=== PATIENT | female | born 1945 | race Caucasian/White ===

== ENCOUNTER 2018-10-18 05:56 | Inpatient (IN) ==
[2018-10-07 15:50] LABS: Basophils # (Auto) 0 K/mcL (0.0-0.3); Basophils % (Auto) 0.4 % (0.0-2.0); Eosinophils # (Auto) 0.3 K/mcL (0.0-0.7); Eosinophils % (Auto) 3.6 % (0.0-7.0); Granulocytes % (Auto) 59.7 % (38.0-78.0); Lymphocytes # (Auto) 2.7 K/mcL (1.5-4.8); Mean Cell Volume 104.8 fL (80.0-100.0); Mean Corpuscular HGB Conc 33.2 g/dL (31.0-36.0); Mean Corpuscular Hemoglobin 34.8 pg (26.0-34.0); Monocytes # (Auto) 0.6 K/mcL (0.1-0.9); Monocytes % (Auto) 6.3 % (1.0-12.0); Platelet Count 363 K/mcL (140-440); RBC 4.09 M/mcL (4.00-5.20); Red Cell Distribution Width 14.1 % (11.5-14.5)
[2018-10-07 16:10] LABS: Blood Urea Nitrogen 27 mg/dl (8-23)
[2018-10-18] MEDS ORDERED: ceFAZolin 1 GM VIAL IV SCH (07:00)
[2018-10-18] MEDS ORDERED: ACETAMINOPHEN 500 MG TABLET PO SCH (07:00)
[2018-10-18] MEDS ORDERED: CELECOXIB 200 MG CAPSULE PO SCH (07:00)
[2018-10-18] MEDS ORDERED: oxyCODONE 10 MG TAB.ER.12H PO SCH (07:00)
[2018-10-18] MEDS ORDERED: 0.9 % SODIUM CHLORIDE 9 ML, KETOROLAC 30 MG, ROPIVACAINE HCL/PF 49.5 ML, EPINEPHrine 0.... IJ SCH (07:00)
[2018-10-18] MEDS ORDERED: PREGABALIN 75 MG CAPSULE PO SCH (07:00)
[2018-10-18] MEDS ORDERED: GENTAMICIN SULFATE 800 MG/20 ML VIAL IR ONE (07:05)
[2018-10-18] MEDS ORDERED: ACETAMINOPHEN 325 MG TABLET PO PRN (07:25)
[2018-10-18] MEDS ORDERED: POLYETHYLENE GLYCOL 3350 17 GM PACKET PO PRN (07:25)
[2018-10-18] MEDS ORDERED: KETOROLAC 15 MG/ML VIAL IV PRN (07:25)
[2018-10-18] MEDS ORDERED: TEMAZEPAM 15 MG CAPSULE PO PRN (07:25)
[2018-10-18] MEDS ORDERED: HYDROmorphone 2 MG/ML VIAL IV PRN ×2 (07:25→10:39)
[2018-10-18] MEDS ORDERED: FLEETS ADULT ENEMA PR PRN (07:25)
[2018-10-18] MEDS ORDERED: TRANEXAMIC ACID 1,000 MG/10 ML VIAL IV ONE ×2 (07:25→09:35)
[2018-10-18] MEDS ORDERED: MAGNESIUM HYDROXIDE 30 ML ORAL.SUSP PO PRN (07:25)
[2018-10-18] MEDS ORDERED: BENZOCAINE/MENTHOL 1 LOZENGE PO PRN ×2 (07:25→10:39)
[2018-10-18] MEDS ORDERED: BISACODYL 10 MG SUPP.RECT PR PRN (07:25)
[2018-10-18] MEDS ORDERED: ONDANSETRON 4 MG/2 ML VIAL IV PRN ×2 (07:25→10:39)
--- NOTE | 2018-10-18 07:25 | Brief Operative Note ---
Date of procedure: 10/18/18 Pre-op diagnosis: right hip djd severe Post-op diagnosis: same Procedure: right aldo cemented Grafts/Implants: Yes Anesthesia: GETA Complications: none Surgeon: Partha Prescott Air Brake Mechanic: Brian Lo Estimated blood loss (cc): 100 Specimens Removed/Pathology: none sent Condition: stable Disposition: PACU
[2018-10-18] MEDS ORDERED: ALBUTEROL SULFATE 1 PUFF INHALER INH PRN (07:27)
[2018-10-18] MEDS ORDERED: FAMOTIDINE 20 MG TABLET PO PRN (07:27)
[2018-10-18] MEDS ORDERED: DEXAMETHASONE 10 MG/ML VIAL IV ONE (09:35)
[2018-10-18] MEDS ORDERED: LIDOCAINE HCL/PF 100 MG/5 ML SYRINGE IV ONE (09:35)
[2018-10-18] MEDS ORDERED: MIDAZOLAM 5 MG/5 ML VIAL IV ONE (09:35)
[2018-10-18] MEDS ORDERED: ONDANSETRON 4 MG/2 ML VIAL IV ONE (09:35)
[2018-10-18] MEDS ORDERED: PROPOFOL 200 MG/20 ML VIAL IV ONE (09:35)
[2018-10-18] MEDS ORDERED: ePHEDrine 50 MG/ML AMPUL IV ONE (09:35)
[2018-10-18] MEDS ORDERED: LACTATED RINGERS 250 ML IV PRN (10:39)
[2018-10-18] MEDS ORDERED: fentaNYL 100 MCG/2 ML VIAL IV PRN (10:39)
[2018-10-18] MEDS ORDERED: FLUMAZENIL 0.1 MG/ML ML IV PRN (10:39)
[2018-10-18] MEDS ORDERED: IPRATROPIUM/ALBUTEROL 3 ML AMPUL.NEB NEB PRN (10:39)
[2018-10-18] MEDS ORDERED: MEPERIDINE 25 MG/ML SYRINGE IV PRN (10:39)
[2018-10-18] MEDS ORDERED: PROMETHAZINE 25 MG/ML VIAL IV PRN (10:39)
[2018-10-18] MEDS ORDERED: NALOXONE HCL 0.4 MG/ML VIAL IV PRN (10:39)
[2018-10-18] MEDS ORDERED: diphenhydrAMINE 50 MG/ML VIAL IV PRN (10:39)
[2018-10-18] MEDS ORDERED: LACTATED RINGERS 1,000 ML IV SCH (10:45)
[2018-10-18] MEDS: SPIRONOLACTONE 25 MG TABLET PO SCH (11:38)
[2018-10-18] MEDS: CARVEDILOL 6.25 MG TABLET PO SCH ×2 (11:39→18:07)
--- NOTE | 2018-10-18 11:55 | XRay Report ---
CLINICAL INFORMATION: Postoperative follow-up TECHNIQUE: AP pelvis. AP and lateral right hip COMPARISON: None. FINDINGS: Status post right total hip arthroplasty. Alignment appears anatomic. There is degenerative joint disease in the left hip with axial joint space narrowing. There are left femoral head osteophytes. Pelvis is negative. No fracture. Degenerative joint disease is demonstrated within the lower lumbar spine. IMPRESSION: Previous right total hip arthroplasty Interpreted and Authenticated by: Vazquez Borrego 10/18/18
[2018-10-18] MEDS: BUDESONIDE INH SCH ×2 (13:42→20:19)
[2018-10-18] MEDS: MULTIVIT,THER IRON,CA,FA & MIN 1 TABLET PO SCH (13:42)
[2018-10-18] MEDS: FORMOTEROL FUMARATE INH SCH ×2 (13:42→20:19)
[2018-10-18] MEDS: HYDROcodone/APAP 10/325MG TABLET PO PRN ×2 (13:43→19:11)
[2018-10-18] MEDS: 0.9 % SODIUM CHLORIDE 10 ML SYRINGE IV SCH ×2 (13:43→20:20)
[2018-10-18] MEDS: LEVOTHYROXINE 100 MCG TABLET PO SCH (13:43)
[2018-10-18] MEDS: DOCUSATE SODIUM 100 MG CAPSULE PO SCH ×2 (13:43→20:18)
[2018-10-18] MEDS: 0.45 % SODIUM CHLORIDE 1,000 ML IV SCH ×2 (13:47→22:34)
[2018-10-18] MEDS: ceFAZolin 1 GM VIAL IV SCH ×2 (14:45→22:34)
[2018-10-18] MEDS: BUMETANIDE 1 MG TABLET PO SCH (18:04)
[2018-10-18] MEDS: POTASSIUM CHLORIDE 20 MEQ TABLET PO SCH (18:07)
--- NOTE | 2018-10-18 18:17 | Discharge Summary ---
Ortho Discharge - [facility] - Patient Instructions Diet: Regular Diet Activity: activity as tolerated, weight bearing as tolerated Total Hip Protocol: Follow activity instructions as provided by Physical Therapy. Dressing Care: May shower in 2 days - Follow Up Plan Follow Up Appointments: Brian Lo PA-C [Physician Intrusion Analyst] - 11/04/18 10:40 am Disposition: Home, Self-Care Prognosis: Good Rehab Potential: Good I certify that the patient requires SNF services: No Overall status at discharge: patient is progressing back to baseline - Orders For Discharge Prescriptions: Aspirin [Ecotrin] 325 mg PO BID #60 tab.ec Docusate Sodium [Colace] 100 mg PO BID #60 cap HYDROcodone/APAP 10/325MG [[place] 10-325Mg] 1 - 2 tab PO Q4HP PRN #75 tab PRN Reason: Pain Level 3-6
[2018-10-18] MEDS: NITROFURANTOIN SR 100 MG CAPSULE PO SCH (20:19)
[2018-10-18] MEDS ORDERED: TIOTROPIUM BROMIDE 18 MCG INHALANT INH SCH (21:00)
[2018-10-18] MEDS ORDERED: guaiFENesin 600 MG TAB.SR.12H PO SCH (21:00)
[2018-10-18] MEDS ORDERED: SENNOSIDES 1 TABLET PO SCH (21:00)
[2018-10-18] MEDS ORDERED: ASPIRIN 325 MG ENTERIC COATED TABLET PO SCH (21:00)
[2018-10-18] MEDS ORDERED: ALBUTEROL SULFATE 2.5 MG/3 ML NEBULIZER NEB SCH (21:00)
[2018-10-19] MEDS: HYDROcodone/APAP 10/325MG TABLET PO PRN ×3 (00:39→12:37)
[2018-10-19] MEDS: 0.45 % SODIUM CHLORIDE 1,000 ML IV SCH (04:56)
[2018-10-19] MEDS: 0.9 % SODIUM CHLORIDE 10 ML SYRINGE IV SCH (05:17)
--- NOTE | 2018-10-19 07:35 | Orthopedic Progress Note ---
Subjective Patient information: Note initiated : 10/19/18 at 7:34 am Service Date, if different from initiated Date: [] Patient: Lucila Lombardi 73 y/o F admitted on 10/18/18 for Right Total Hip Arthroplasty. Chief Complaint: [Pt is stable this morning on post operative day 1 without any significant concerns or complaints. Patients vital signs have remained stable. Patients dressing is dry and is grossly intact from a neurovascular and motor standpoint. Patients 10 point ROS is otherwise negative. ] Objective Vital signs: Vital Signs Temp Pulse Pulse Resp BP BP Pulse Ox 10/19/18 06:56 96.2 F L 65 18 113/62 95 10/19/18 05:00 93 10/19/18 04:00 97.3 F 81 18 116/62 93 10/19/18 00:00 98.7 F 73 16 111/59 93 10/18/18 23:55 93 10/18/18 21:55 85 18 10/18/18 20:11 98.2 F 76 18 122/53 93 10/18/18 14:59 139/74 94 10/18/18 13:59 122/67 97 10/18/18 13:29 116/66 95 10/18/18 13:00 96 10/18/18 12:44 124/70 94 10/18/18 12:29 119/68 94 10/18/18 12:15 120/58 95 10/18/18 11:59 115/65 94 10/18/18 11:50 97.3 F 59 L 16 117/57 96 10/18/18 11:40 56 L 15 119/54 96 10/18/18 11:25 97.1 F 62 12 111/81 97 10/18/18 11:20 55 L 15 125/60 98 10/18/18 11:15 55 L 15 118/60 98 10/18/18 11:12 97.1 F 62 12 111/81 97 Intake and Output 10/18/18 10/19/18 10/19/18 21:59 05:59 13:59 Intake Total 1225 / 1225 1813 / 1813 Output Total 750 / 750 500 / 500 Balance 475 / 475 1313 / 1313 Intake: IV 1513 / 1513 Sodium Chloride 0.45% 1,000 ml 1513 / 1513 @ 100 mls/hr IV .Q10H ABHAY Rx#: [id number] Oral 1225 / 1225 300 / 300 Output: Urine Catheter Amount 750 / 750 Straight 750 / 750 Void Amount 500 / 500 Other: Urine Appearance Straight Clear Urine Color Bright Yellow Straight Dark Yellow Urine Odor Normal Weight 218 lb Intake & Output: Intake & Output 10/18/18 10/19/18 10/19/18 21:59 05:59 13:59 Intake Total 1225 / 1225 1813 / 1813 Output Total 750 / 750 500 / 500 Balance 475 / 475 1313 / 1313 Weight 218 lb Intake: IV 1513 / 1513 Sodium Chloride 0.45% 1,000 ml 1513 / 1513 @ 100 mls/hr IV .Q10H ABHAY Rx#: [id number] Oral 1225 / 1225 300 / 300 Output: Urine Catheter Amount 750 / 750 Straight 750 / 750 Void Amount 500 / 500 Other: Urine Appearance Straight Clear Urine Color Bright Yellow Straight Dark Yellow Urine Odor Normal Incision: Yes healing Incision clean and dry: Yes Dressing: Yes clean Weight bearing status: full Neurological exam IM: Yes motor sensory intact, Yes neurovascular intact Extremities exam IM: Yes Foot pink and warm, Yes neurovascular intact - Labs CBC & BMP: 10/19/18 05:19 10/07/18 13:53 Labs: Orthopedic Labs 10/07/18 13:53 PT 16.0 H INR 1.3 H APTT 40 H 10/19/18 10/07/18 05:19 13:53 Hgb 14.2 Hct 35.5 L 42.8 Assessment and Plan (1) Hx of total hip arthroplasty The patient has been educated regarding dressing care, Physical Therapy recommendations, home exercises, restrictions, and follow up appointments. The patient has had all necessary DME prescribed. The patient has remained relatively stable during their hospital course. Leave Dermabond patch intact until followup Status: Acute
[2018-10-19] MEDS: LEVOTHYROXINE 100 MCG TABLET PO SCH (08:25)
[2018-10-19] MEDS: SPIRONOLACTONE 25 MG TABLET PO SCH (08:30)
[2018-10-19] MEDS: DOCUSATE SODIUM 100 MG CAPSULE PO SCH (08:30)
[2018-10-19] MEDS: BUMETANIDE 1 MG TABLET PO SCH (08:30)
[2018-10-19] MEDS: POTASSIUM CHLORIDE 20 MEQ TABLET PO SCH (08:32)
[2018-10-19] MEDS: CARVEDILOL 6.25 MG TABLET PO SCH (08:32)
[2018-10-19] MEDS: MULTIVIT,THER IRON,CA,FA & MIN 1 TABLET PO SCH (08:33)
[2018-10-19] MEDS: NITROFURANTOIN SR 100 MG CAPSULE PO SCH (08:34)
--- NOTE | 2018-10-19 08:39 | Operative Note ---
DATE OF OPERATION: 10/18/2018 PREOPERATIVE DIAGNOSIS: A 73-year-old female whose chief complaint is significant right hip pain. POSTOPERATIVE DIAGNOSIS: A 73-year-old female whose chief complaint is significant right hip pain. PROCEDURE: Right cemented total hip arthroplasty. SURGEON: Partha Prescott M.D. INVENTORY MANAGEMENT SPECIALIST: Brian Lo PA-C. BLOOD LOSS: 100 mL. COMPLICATIONS: None. DESCRIPTION OF PROCEDURE: The patient was brought to the operating room and put to sleep with general LMA anesthesia. The right leg was sterilely prepped and draped in the usual sterile fashion and confirmed as the operative site. Once done, we then turned the patient into a left lateral position on the [place] positioner. We made our incision superiorly, placing Ioban outs on the skin to protect it from the operative field. With the incision we placed the Charnley retractor and then exposed the posterior capsule. The superior capsule was released and dislocated the hip superiorly. At this point, we then made the neck cut at 30 mm from the center of hip rotation and reamed the acetabulum. We reamed to the medial wall as templated and placed a 35 mm screw. Good bleeding bone was encountered. Good fixation of the implant. We placed a standard-thickness poly with no garcia for a 36 mm head. Once done, we then prepared the femoral component. This was broached up for a size 5 stem. This was then trialed. The original x-ray in surgery noted that there was near equal leg length. We then placed a +5 neck length on the ball with a 36 mm head, finding it to be extremely stable. We irrigated thoroughly and cemented into place a size 5 stem with 15 degrees of anteversion and a standard poly length. This seemed to give excellent length and alignment. We measured the legs, and this was perfectly aligned. We irrigated thoroughly and as the cement was dry, we placed the ceramic ball. This was reduced, very stable. The patient tolerated this well without complication. RBH:mehki Job ID: [id number] Doc ID: [id number] Partha Prescott MD
[2018-10-19] MEDS ORDERED: VITAMIN D3 1,000 UNIT TABLET PO SCH (09:00)
[2018-10-19] MEDS ORDERED: IRON POLYSACCHARIDE COMPLEX 150 MG CAPSULE PO SCH (09:00)
[2018-10-19] MEDS: FORMOTEROL FUMARATE INH SCH (11:26)
[2018-10-19] MEDS: BUDESONIDE INH SCH (11:26)
[2018-10-19] MEDS ORDERED: RIVAROXABAN 20 MG TABLET PO SCH (21:00)
== END 2018-10-19 12:50 | disposition home or self-care (01) | DRG 470 ==
LOC: MEDSUR 05:56
PROVIDERS: ADMIT Orthopaedic Surgery; ATTEND Orthopaedic Surgery
CPT/HCPCS: 62322; 73501; 73502; 97161; 97166; C1713; C1776; J0171; J0690; J1100; J1580; J1885; J2001; J2250; J2405; J2795; J7050; J7120

== ENCOUNTER 2019-02-14 06:02 | Inpatient (IN) ==
[2019-02-08 17:49] LABS: Basophils # (Auto) 0 K/mcL (0.0-0.3); Basophils % (Auto) 0.4 % (0.0-2.0); Eosinophils # (Auto) 0.3 K/mcL (0.0-0.7); Eosinophils % (Auto) 2.8 % (0.0-7.0); Granulocytes % (Auto) 60.6 % (38.0-78.0); Lymphocytes # (Auto) 2.9 K/mcL (1.5-4.8); Lymphocytes % (Auto) 30.3 % (15.5-49.0); Mean Cell Volume 102.1 fL (80.0-100.0); Monocytes # (Auto) 0.6 K/mcL (0.1-0.9); Monocytes % (Auto) 5.9 % (1.0-12.0); Platelet Count 376 K/mcL (140-440); Red Cell Distribution Width 14.9 % (11.5-14.5)
[2019-02-08 18:13] LABS: Blood Urea Nitrogen 26 mg/dl (8-23)
[2019-02-14] MEDS ORDERED: oxyCODONE 10 MG TAB.ER.12H PO SCH (07:00)
[2019-02-14] MEDS ORDERED: CELECOXIB 200 MG CAPSULE PO SCH (07:00)
[2019-02-14] MEDS ORDERED: ceFAZolin 2 GM in DEXTROSE 5% IN WATER 50 ML IV SCH (07:00)
[2019-02-14] MEDS ORDERED: 0.9 % SODIUM CHLORIDE 9 ML, KETOROLAC 30 MG, ROPIVACAINE HCL/PF 49.5 ML, EPINEPHrine 0.... IJ SCH (07:00)
[2019-02-14] MEDS ORDERED: PREGABALIN 75 MG CAPSULE PO SCH (07:00)
[2019-02-14] MEDS ORDERED: ACETAMINOPHEN 500 MG TABLET PO SCH (07:00)
[2019-02-14 08:40] LABS: Appearance,Urine CLEAR; Bilirubin,Urine NEG (NEG); Color,Urine STRAW; Glucose,Urine (UA) NEGATIVE (NEG); Leukocyte Esterase,Urine NEG /uL (NEG); Protein,Urine NEG (NEG); Specific Gravity,Urine 1.009 (1.000-1.035); Urine Blood NEG mg/dL (<0.03); Urobilinogen,Urine NEG (NEG)
[2019-02-14] MEDS ORDERED: PHENYLEPHRINE 10 MG/ML VIAL IV ONE (09:30)
[2019-02-14] MEDS ORDERED: ONDANSETRON 4 MG/2 ML VIAL IV ONE (09:30)
[2019-02-14] MEDS ORDERED: GLYCOPYRROLATE 0.2 MG/ML VIAL IV ONE (09:30)
[2019-02-14] MEDS ORDERED: ePHEDrine 50 MG/ML AMPUL IV ONE (09:30)
[2019-02-14] MEDS ORDERED: KETAMINE 100 MG/ML ML IV ONE (09:30)
[2019-02-14] MEDS ORDERED: DEXAMETHASONE 10 MG/ML VIAL IV ONE (09:30)
[2019-02-14] MEDS ORDERED: TRANEXAMIC ACID 1,000 MG/10 ML VIAL IV ONE ×2 (09:30→11:01)
[2019-02-14] MEDS ORDERED: MIDAZOLAM 5 MG/5 ML VIAL IV ONE (09:30)
[2019-02-14] MEDS ORDERED: PROPOFOL 200 MG/20 ML VIAL IV ONE (09:30)
[2019-02-14] MEDS ORDERED: LIDOCAINE HCL/PF 100 MG/5 ML SYRINGE IV ONE (09:30)
[2019-02-14] MEDS ORDERED: GENTAMICIN SULFATE 800 MG/20 ML VIAL IR ONE (10:00)
[2019-02-14] MEDS ORDERED: LACTATED RINGERS 250 ML IV PRN (10:03)
[2019-02-14] MEDS ORDERED: ACETAMINOPHEN 1,000 MG/100 ML BOTTLE IV ONE (10:03)
[2019-02-14] MEDS ORDERED: BENZOCAINE/MENTHOL 1 LOZENGE PO PRN ×2 (10:03→11:01)
[2019-02-14] MEDS ORDERED: FLUMAZENIL 0.1 MG/ML ML IV PRN (10:03)
[2019-02-14] MEDS ORDERED: NALOXONE HCL 0.4 MG/ML VIAL IV PRN (10:03)
[2019-02-14] MEDS ORDERED: ONDANSETRON 4 MG/2 ML VIAL IV PRN ×2 (10:03→11:01)
[2019-02-14] MEDS ORDERED: METHOCARBAMOL 1,000 MG/10 ML VIAL IV PRN (10:03)
[2019-02-14] MEDS ORDERED: LACTATED RINGERS 1,000 ML IV SCH (10:15)
[2019-02-14] MEDS ORDERED: KETOROLAC 15 MG/ML VIAL IV PRN (11:01)
[2019-02-14] MEDS ORDERED: POLYETHYLENE GLYCOL 3350 17 GM PACKET PO PRN (11:01)
[2019-02-14] MEDS ORDERED: MAGNESIUM HYDROXIDE 30 ML ORAL.SUSP PO PRN (11:01)
[2019-02-14] MEDS ORDERED: FLEETS ADULT ENEMA PR PRN (11:01)
[2019-02-14] MEDS ORDERED: HYDROmorphone 2 MG/ML VIAL IV PRN (11:01)
[2019-02-14] MEDS ORDERED: ACETAMINOPHEN 325 MG TABLET PO PRN (11:01)
[2019-02-14] MEDS ORDERED: TEMAZEPAM 15 MG CAPSULE PO PRN (11:01)
[2019-02-14] MEDS ORDERED: BISACODYL 10 MG SUPP.RECT PR PRN (11:01)
--- NOTE | 2019-02-14 11:01 | Brief Operative Note ---
Date of procedure: 02/14/19 Pre-op diagnosis: left hip djd severe Post-op diagnosis: same Procedure: Left Total HIP cemented Grafts/Implants: Yes Anesthesia: GETA Surgeon: Partha Prescott Director Biologics: Brian Lo Estimated blood loss (cc): 100 Specimens Removed/Pathology: none sent Condition: stable Disposition: PACU
[2019-02-14] MEDS ORDERED: 0.45 % SODIUM CHLORIDE 1,000 ML IV SCH (11:15)
--- NOTE | 2019-02-14 11:15 | XRay Report ---
CLINICAL INFORMATION: left hip arthroplasty COMPARISON: None. FINDINGS: Single AP film taken in the OR shows prostatic left acetabulum to be slightly lateral canting then is typically seen. The femoral stem template is anatomically aligned. Older right hip prostheses shows no evidence of loosening or infection. IMPRESSION: Left total hip prostheses in near anatomic alignment Interpreted and Authenticated by: Vazquez Medrano 02/14/19
[2019-02-14] MEDS: fentaNYL 100 MCG/2 ML VIAL IV PRN ×4 (11:49→11:54)
--- NOTE | 2019-02-14 11:54 | Operative Note ---
DATE OF OPERATION: 02/14/2019 PREOPERATIVE DIAGNOSIS: Left hip degenerative arthritis, severe. POSTOPERATIVE DIAGNOSIS: Severe arthritis, left hip. PROCEDURE: Left total hip arthroplasty with a cemented stem. SURGEON: Partha Prescott M.D. ROLLER STAINER: Brian Lo PA-C. ANESTHESIA: General LMA anesthesia. COMPLICATIONS: None. ESTIMATED BLOOD LOSS: 100 mL. IMPLANTS: A size 5 cemented stem with an 8 mm centralizer distally, a canal restrictor. Cement was placed. A +5, 36 mm ceramic head was placed. The cup was a 52 mm cup with a hooded liner with a 25 mm screw. INDICATION FOR PROCEDURE: A 74-year-old female who has had severe bilateral hip pain, had a recent right total hip, and is now having severe pain in her left hip with [id number] arthritis. She has failed all conservative measures and would like to proceed with a total hip. DESCRIPTION OF PROCEDURE: The patient was brought to the operating room and put to sleep with general LMA anesthesia. Once asleep, the patient had the left hip sterilely prepped and draped in the usual sterile fashion. Turned into a right lateral position, the [place] positioner was placed, and prepped and draped. We placed an incision superiorly after the timeout had been performed. Superior approach performed, keeping the muscle intact. We exposed the posterior capsule which was released in the superior portion. Dislocated superiorly and we made our neck cut at 30 mm from the center of hip rotation. We then subluxed the hip anteriorly, removed the remnants of the labrum and ligaments. We reamed up to the size 52 and implanted a 52 cup with 20 degrees of anteversion and 40 degrees of inclination. A 25 mm screw was placed and then a hooded liner. There was good bleeding bone and good purchase of the cup. We irrigated thoroughly and then broached up on the femur, taking an x-ray of a size 5 stem with a neutral neck length. It seemed to be slightly shorter on this side, and the hip was not as stable as we would like, only up to about 60 degrees. We then cemented into place the size 5 stem with a canal restrictor and an 8 mm centralizer, placing the hip in 15 degrees of anteversion, and then we trialed a 2.5 and a 5. The 5 was the most stable and seemed to fit very nicely because the stem seemed to sit lower than our trial on the medial calcar. With this, the 5 seemed to be perfect leg length, perfectly stable. The final implants were placed. We irrigated thoroughly, closed the capsule posteriorly with #1 Ethibond. We closed the fascial layer with a #1 Stratafix. We irrigated thoroughly and closed the fascial layer and deeper layer with a Stratafix and 2-0 Vicryl. Adhesive closure was then used to close the skin. Sterile bandage was applied. The patient tolerated this well without complication. RBH:mekhi Job ID: [id number] Doc ID: [id number] Partha Prescott MD
--- NOTE | 2019-02-14 12:13 | XRay Report ---
CLINICAL INFORMATION: Post-Op Total Hip COMPARISON: None. FINDINGS: Left total hip prostheses is in near-anatomic alignment. No osseous abnormality. Older right total hip prostheses remain in stable position without loosening or infection. IMPRESSION: Negative Interpreted and Authenticated by: Vazquez Medrano 02/14/19
[2019-02-14] MEDS: oxyCODONE/APAP 5/325MG TABLET PO PRN ×3 (13:29→22:23)
[2019-02-14] MEDS: 0.9 % SODIUM CHLORIDE 10 ML SYRINGE IV SCH ×2 (14:44→21:01)
[2019-02-14] MEDS: ceFAZolin 1 GM VIAL IV SCH (17:35)
[2019-02-14] MEDS: ASPIRIN 325 MG ENTERIC COATED TABLET PO SCH (20:31)
[2019-02-14] MEDS: DOCUSATE SODIUM 100 MG CAPSULE PO SCH (20:31)
[2019-02-14] MEDS ORDERED: BUMETANIDE 1 MG TABLET PO SCH (21:00)
[2019-02-14] MEDS ORDERED: SENNOSIDES 1 TABLET PO SCH (21:00)
[2019-02-14] MEDS ORDERED: POTASSIUM CHLORIDE 20 MEQ TABLET PO ONE (21:57)
[2019-02-14] MEDS: ALBUTEROL SULFATE 2.5 MG/3 ML NEBULIZER NEB SCH (22:15)
[2019-02-14] MEDS ORDERED: BUDESONIDE 1 PUFF INHALER INH SCH (22:55)
[2019-02-14] MEDS: CARVEDILOL 6.25 MG TABLET PO SCH (23:08)
[2019-02-15] MEDS: 0.9 % SODIUM CHLORIDE 10 ML SYRINGE IV SCH ×2 (01:43→06:41)
[2019-02-15] MEDS: ceFAZolin 1 GM VIAL IV SCH (01:43)
[2019-02-15] MEDS: oxyCODONE/APAP 5/325MG TABLET PO PRN ×3 (07:12→14:42)
--- NOTE | 2019-02-15 07:44 | Orthopedic Progress Note ---
Subjective Patient information: Note initiated : 02/15/19 at 7:43 am Service Date, if different from initiated Date: [] Patient: Lucila Lombardi 74 y/o F admitted on 02/14/19 for Left Total Hip Arthroplasty. Chief Complaint: [Pt is stable this morning on post operative day 1 without any significant concerns or complaints. Patients vital signs have remained stable. Patients dressing is dry and is grossly intact from a neurovascular and motor standpoint. Patients 10 point ROS is otherwise negative. ] Objective Vital signs: Vital Signs Temp Pulse Pulse Resp BP BP Pulse Ox 02/15/19 07:33 97.6 F 75 18 113/63 95 02/15/19 04:13 97.8 F 72 16 133/68 95 02/14/19 22:35 98.5 F 78 16 131/65 95 02/14/19 22:10 84 18 02/14/19 19:03 97.8 F 73 16 114/67 93 02/14/19 16:49 97 02/14/19 15:59 96.9 F L 20 110/65 91 02/14/19 15:00 97 02/14/19 14:03 126/62 97 02/14/19 13:33 120/64 96 02/14/19 13:03 117/61 95 02/14/19 13:01 97 02/14/19 12:48 121/66 95 02/14/19 12:33 115/64 95 02/14/19 12:20 130/55 94 02/14/19 12:04 96.4 F L 110/51 95 02/14/19 11:45 97.0 F 58 L 16 115/53 95 02/14/19 11:30 97.2 F 65 18 105/72 100 02/14/19 11:25 59 L 18 105/51 100 02/14/19 11:20 60 14 111/59 100 02/14/19 11:15 97.0 F 56 L 16 118/61 98 02/14/19 11:01 97 Intake and Output 02/14/19 02/15/19 02/15/19 21:59 05:59 13:59 Intake Total 1600 300 Output Total 1300 Balance 1600 -1000 Intake: Oral 800 300 GI Tube Flush 800 Output: Urine Catheter Amount 800 Void Amount 500 Other: Urine Appearance Clear Uretheral (Wilde) Clear Urine Color Pale Bright Yellow Uretheral (Wilde) Bright Yellow Weight 219 lb Intake & Output: Intake & Output 02/14/19 02/15/19 02/15/19 21:59 05:59 13:59 Intake Total 1600 300 Output Total 1300 Balance 1600 -1000 Weight 219 lb Intake: Oral 800 300 GI Tube Flush 800 Output: Urine Catheter Amount 800 Void Amount 500 Other: Urine Appearance Clear Uretheral (Wilde) Clear Urine Color Pale Bright Yellow Uretheral (Wilde) Bright Yellow Incision: Yes healing Incision clean and dry: Yes Dressing: Yes clean Weight bearing status: full Neurological exam IM: Yes motor sensory intact, Yes neurovascular intact Extremities exam IM: Yes Foot pink and warm, Yes neurovascular intact - Labs CBC & BMP: 02/15/19 04:20 02/08/19 14:43 Labs: Orthopedic Labs 02/08/19 14:43 PT 14.8 H INR 1.2 H APTT 42 H 02/15/19 02/08/19 04:20 14:43 Hgb 14.1 Hct 35.0 L 42.9 Assessment and Plan (1) Hx of total hip arthroplasty The patient has been educated regarding dressing care, Physical Therapy recommendations, home exercises, restrictions, and follow up appointments. The patient has had all necessary DME prescribed. The patient has remained relatively stable during their hospital course. Status: Acute
--- NOTE | 2019-02-15 07:47 | Discharge Summary ---
Ortho Discharge - [facility] - Patient Instructions Diet: Regular Diet Activity: activity as tolerated, weight bearing as tolerated Total Hip Protocol: Follow activity instructions as provided by Physical Therapy. Dressing Care: May shower in 2 days Patient Education: Total Hip Replacement (DC) - Problem Maintenance (1) Hx of total hip arthroplasty Status: Acute - Follow Up Plan Follow Up Appointments: Brian Lo PA-C [Physician Adjunct Mathematics Instructor] - 03/01/19 10:50 am Disposition: Home, Self-Care Prognosis: Good Rehab Potential: Good I certify that the patient requires SNF services: No Overall status at discharge: patient is progressing back to baseline - Orders For Discharge Prescriptions: Aspirin [Ecotrin] 325 mg PO BID #60 tab.ec Docusate Sodium [Colace] 100 mg PO BID #60 cap oxyCODONE/APAP [Percocet 5-325 mg] 1 - 2 tab PO Q4HP PRN #75 tab PRN Reason: Pain Level 3-6
[2019-02-15] MEDS ORDERED: POTASSIUM CHLORIDE 20 MEQ TABLET PO SCH (08:00)
[2019-02-15] MEDS: CARVEDILOL 6.25 MG TABLET PO SCH (08:23)
[2019-02-15] MEDS: DOCUSATE SODIUM 100 MG CAPSULE PO SCH (08:31)
[2019-02-15] MEDS: ASPIRIN 325 MG ENTERIC COATED TABLET PO SCH (08:34)
[2019-02-15] MEDS ORDERED: BUMETANIDE 1 MG TABLET PO SCH (09:00)
[2019-02-15] MEDS ORDERED: SYMBICORT INH SCH (09:00)
[2019-02-15] MEDS: ALBUTEROL SULFATE 2.5 MG/3 ML NEBULIZER NEB SCH (09:27)
== END 2019-02-15 15:30 | disposition home or self-care (01) | DRG 470 ==
LOC: MEDSUR 06:02
PROVIDERS: ADMIT Orthopaedic Surgery; ATTEND Orthopaedic Surgery

== ENCOUNTER 2019-08-25 04:33 | Inpatient (IN) ==
[2019-08-18 16:20] LABS: Basophils # (Auto) 0 K/mcL (0.0-0.3); Basophils % (Auto) 0.4 % (0.0-2.0); Eosinophils # (Auto) 0.3 K/mcL (0.0-0.7); Eosinophils % (Auto) 3.2 % (0.0-7.0); Granulocytes % (Auto) 58.8 % (38.0-78.0); Hematocrit 42.8 % (36.0-48.0); Hemoglobin 14.1 g/dL (12.0-15.0); Lymphocytes # (Auto) 2.8 K/mcL (1.5-4.8); Lymphocytes % (Auto) 31.6 % (15.5-49.0); Mean Cell Volume 100.9 fL (80.0-100.0); Monocytes # (Auto) 0.5 K/mcL (0.1-0.9); Platelet Count 341 K/mcL (140-440); RBC 4.24 M/mcL (4.00-5.20); Red Cell Distribution Width 15.6 % (11.5-14.5); WBC 8.9 K/mcL (4.5-11.0)
[2019-08-18 16:43] LABS: ALT/SGPT 25 U/l (0-40); AST/SGOT 21 U/l (0-37); Albumin 4.2 gm/dL (3.2-5.2); Albumin/Globulin Ratio 1.4 (1.0-2.3); Alkaline Phosphatase 92 U/L (39-117); Bilirubin,Total 0.4 mg/dL (0.0-1.0); Blood Urea Nitrogen 36 mg/dl (8-23); Carbon Dioxide 24 mmol/L (22-30); Chloride 100 mmol/L (96-108); Globulin 3.1 gm/dL (2.2-3.7); Glomerular Filtration Rate 63; Glucose 104 mg/dL (70-105)
[~2019-08-25 04:33] MED LIST: SCOPOLAMINE 1 PATCH PATCH TOPICAL PRN
[2019-08-25] MEDS ORDERED: cefOXitin 2 GM VIAL IV SCH (06:00)
[2019-08-25] MEDS ORDERED: MAGNESIUM SULFATE 2 GM/50 ML BAG IV ONE ×2 (06:47→07:00)
[2019-08-25] MEDS ORDERED: KETAMINE 100 MG/ML ML IV ONE (07:00)
[2019-08-25] MEDS ORDERED: LIDOCAINE HCL/PF 100 MG/5 ML SYRINGE IV ONE (07:00)
[2019-08-25] MEDS ORDERED: HYDROmorphone 2 MG/ML VIAL IV ONE (07:00)
[2019-08-25] MEDS ORDERED: ONDANSETRON 4 MG/2 ML VIAL IV ONE (07:00)
[2019-08-25] MEDS ORDERED: MIDAZOLAM 2 MG/2 ML VIAL IV ONE (07:00)
[2019-08-25] MEDS ORDERED: ROCURONIUM 10 MG/ML ML IV ONE (07:00)
[2019-08-25] MEDS ORDERED: DEXAMETHASONE 10 MG/ML VIAL IV ONE (07:00)
[2019-08-25] MEDS ORDERED: fentaNYL 100 MCG/2 ML VIAL IV ONE (07:00)
[2019-08-25] MEDS ORDERED: GLYCOPYRROLATE 0.2 MG/ML VIAL IV ONE (07:00)
[2019-08-25] MEDS ORDERED: PHENYLEPHRINE 10 MG/ML VIAL IV ONE (07:00)
[2019-08-25] MEDS ORDERED: SUCCINYLCHOLINE 20 MG/ML ML IV ONE (07:00)
[2019-08-25] MEDS ORDERED: PROPOFOL 200 MG/20 ML VIAL IV ONE (07:00)
[2019-08-25] MEDS ORDERED: BISACODYL 10 MG SUPP.RECT PR PRN (08:24)
[2019-08-25] MEDS ORDERED: oxyCODONE/APAP 5/325MG TABLET PO PRN (08:24)
[2019-08-25] MEDS ORDERED: ONDANSETRON 4 MG/2 ML VIAL IV PRN ×2 (08:24→08:31)
[2019-08-25] MEDS ORDERED: ONDANSETRON 4 MG ODT TABLET SL PRN (08:24)
[2019-08-25] MEDS ORDERED: MAG HYDROX/AL HYDROX/SIMETH 30 ML ORAL.SUSP PO PRN (08:24)
[2019-08-25] MEDS ORDERED: MAGNESIUM HYDROXIDE 30 ML ORAL.SUSP PO PRN (08:24)
[2019-08-25] MEDS ORDERED: ALBUTEROL SULFATE 1 PUFF INHALER INH PRN (08:29)
[2019-08-25] MEDS ORDERED: FAMOTIDINE 20 MG TABLET PO PRN (08:29)
[2019-08-25] MEDS ORDERED: EPINEPHRINE IM PRN (08:29)
[2019-08-25] MEDS ORDERED: PSEUDOEPHEDRNE HCL PO PRN (08:29)
[2019-08-25] MEDS ORDERED: GUAIFENESIN PO PRN (08:29)
[2019-08-25] MEDS ORDERED: FLUMAZENIL 0.1 MG/ML ML IV PRN (08:31)
[2019-08-25] MEDS ORDERED: NALOXONE HCL 0.4 MG/ML VIAL IV PRN (08:31)
[2019-08-25] MEDS ORDERED: METOPROLOL TARTRATE 5 MG/5 ML VIAL IV PRN (08:31)
[2019-08-25] MEDS ORDERED: HYDROmorphone 2 MG/ML VIAL IV PRN (08:31)
[2019-08-25] MEDS ORDERED: LACTATED RINGERS 250 ML IV PRN (08:31)
[2019-08-25] MEDS ORDERED: fentaNYL 100 MCG/2 ML VIAL IV PRN (08:31)
[2019-08-25] MEDS ORDERED: LABETALOL 5 MG/ML ML IV PRN (08:31)
[2019-08-25] MEDS ORDERED: METHOCARBAMOL 1,000 MG/10 ML VIAL IV PRN (08:31)
[2019-08-25] MEDS ORDERED: IPRATROPIUM/ALBUTEROL 3 ML AMPUL.NEB NEB PRN (08:31)
[2019-08-25] MEDS ORDERED: BENZOCAINE/MENTHOL 1 LOZENGE PO PRN (08:31)
[2019-08-25] MEDS ORDERED: MEPERIDINE 25 MG/ML SYRINGE IV PRN (08:31)
[2019-08-25] MEDS ORDERED: ACETAMINOPHEN 1,000 MG/100 ML BOTTLE IV ONE ×2 (08:31→09:15)
--- NOTE | 2019-08-25 08:36 | Brief Operative Note ---
Date of procedure: 08/25/19 Pre-op diagnosis: left renal cell ca Post-op diagnosis: same Procedure: left radical nephrectomy Grafts/Implants: No Anesthesia: GETA Findings: see op note Complications: none Surgeon: Ronnie Ruiz Estimated blood loss (cc): 50 Specimens Removed/Pathology: other (left kidney) Condition: stable Disposition: PACU
[2019-08-25] MEDS ORDERED: BUPIVACAINE W/EPI 0.25% 50 ML VIAL IJ ONE (08:45)
[2019-08-25] MEDS ORDERED: LACTATED RINGERS 1,000 ML IV SCH (08:45)
[2019-08-25] MEDS ORDERED: IPRATROPIUM/ALBUTEROL 3 ML AMPUL.NEB NEB ONE (08:55)
--- NOTE | 2019-08-25 08:55 | Operative Note ---
DATE OF OPERATION: 08/25/2019 PREOPERATIVE DIAGNOSIS: Left renal cell carcinoma. POSTOPERATIVE DIAGNOSIS: Left renal cell carcinoma. PROCEDURE: Left radical nephrectomy. SURGEON: Ronnie Ruiz M.D. HAZARDOUS WASTE MANAGEMENT SPECIALIST: Francisco Pascual M.D. INDICATION: The patient is a 74-year-old female who incidentally was noted to have a mass on the left kidney. She presents now for a left nephrectomy. Originally, we did talk about a partial nephrectomy, but in reviewing the films she did have what appeared to be involvement near the renal pelvis. She presents now for the procedure. PROCEDURE: The patient was identified and consent was signed. She was given general anesthesia, placed in supine position, and prepped and draped in a standard fashion. A subcostal incision was made and carried through the muscle layers. We were able to enter into the peritoneal cavity. We inspected the liver. This was normal. The ligamentum teres was tied and ligated. We were then able to place retractors and were able to visualize the colon. No pathology was noticed. We took down the white line of [place] and were able to reflect the colon to the midline. We were then able to identify the kidney. We went down and were able to identify the renal vessels. These were doubly-ligated and clipped, and we were able to divide the pedicle. We then continued division around the kidney, making sure we ligated the ureter. The kidney was then delivered, and it appeared that this was involving the pelvis. We then irrigated the wound copiously. We put Shalom down to help with the bleeding, and the bowel was placed in its normal position. The abdominal wall was then closed in two layers with 0 PDS. Subcutaneous tissue was reapproximated. Local anesthesia was used and the skin was closed with miguel angel. The sterile dressings were applied. The patient was then awoken and taken to recovery room in stable condition. She tolerated the procedure well. Needle and sponge count were correct. Estimated blood loss was 50 mL. ROMINA:mekhi Job ID: [id number] Doc ID: [id number] Ronnie Ruiz MD
[2019-08-25] MEDS: ALBUTEROL SULFATE 2.5 MG/3 ML NEBULIZER NEB SCH ×2 (09:42→20:48)
[2019-08-25] MEDS: DEXTROSE 5%-1/2NS W/20MEQ KCL 1,000 ML IV SCH ×2 (09:44→19:38)
[2019-08-25] MEDS: SPIRONOLACTONE 25 MG TABLET PO SCH (11:38)
[2019-08-25] MEDS: BUMETANIDE 1 MG TABLET PO SCH (11:38)
[2019-08-25] MEDS: Ubidecarenone [Coq-10] 100 mg Tab PO SCH (11:38)
[2019-08-25] MEDS: MONTELUKAST 10 MG TABLET PO SCH (11:51)
[2019-08-25] MEDS: MULTIVIT,THER IRON,CA,FA & MIN 1 TABLET PO SCH (11:51)
[2019-08-25] MEDS: CELECOXIB 200 MG CAPSULE PO SCH (11:51)
[2019-08-25] MEDS: Budesonide/Formoterol Fumarate [Symbicort] 160-4.5 mcg Inhaler INH SCH ×2 (11:52→21:00)
[2019-08-25] MEDS: IRON POLYSACCHARIDE COMPLEX 150 MG CAPSULE PO SCH (11:52)
[2019-08-25] MEDS: ESTRADIOL 1 MG TABLET PO SCH (11:53)
[2019-08-25] MEDS: VITAMIN D3 1,000 UNIT TABLET PO SCH (11:53)
[2019-08-25] MEDS: ACETAMINOPHEN 650 MG/65 ML BOTTLE IV SCH ×2 (14:19→18:30)
[2019-08-25] MEDS: cefOXitin 2 GM VIAL IV SCH ×2 (14:21→22:00)
[2019-08-25] MEDS: 0.9 % SODIUM CHLORIDE 10 ML SYRINGE IV SCH (14:21)
[2019-08-25] MEDS: CARVEDILOL 6.25 MG TABLET PO SCH (18:16)
[2019-08-25] MEDS: POTASSIUM CHLORIDE 20 MEQ TABLET PO SCH ×2 (18:29→18:37)
[2019-08-25] MEDS ORDERED: BUMETANIDE 1 MG TABLET PO SCH (21:00)
[2019-08-25] MEDS ORDERED: TIOTROPIUM BROMIDE 18 MCG INHALANT INH SCH (21:00)
[2019-08-25] MEDS ORDERED: guaiFENesin 600 MG TAB.SR.12H PO SCH (21:00)
[2019-08-26] MEDS: 0.9 % SODIUM CHLORIDE 10 ML SYRINGE IV SCH ×3 (01:55→20:46)
[2019-08-26 05:30] LABS: Hematocrit 36.7 % (36.0-48.0); Hemoglobin 12.2 g/dL (12.0-15.0); Mean Cell Volume 102.2 fL (80.0-100.0); Mean Corpuscular HGB Conc 33.1 g/dL (31.0-36.0); Mean Platelet Volume 8.5 fL (7.4-10.4); Platelet Count 293 K/mcL (140-440); RBC 3.59 M/mcL (4.00-5.20); Red Cell Distribution Width 15.8 % (11.5-14.5); WBC 11.4 K/mcL (4.5-11.0)
[2019-08-26 05:45] LABS: Blood Urea Nitrogen 17 mg/dl (8-23); Calcium 8.8 mg/dl (8.6-10.4); Carbon Dioxide 22 mmol/L (22-30); Chloride 101 mmol/L (96-108); Glomerular Filtration Rate 45; Glucose 121 mg/dL (70-105)
[2019-08-26] MEDS: cefOXitin 2 GM VIAL IV SCH (05:53)
[2019-08-26] MEDS: DEXTROSE 5%-1/2NS W/20MEQ KCL 1,000 ML IV SCH (05:53)
[2019-08-26] MEDS: ACETAMINOPHEN 650 MG/65 ML BOTTLE IV SCH ×2 (05:54)
[2019-08-26] MEDS: ALBUTEROL SULFATE 2.5 MG/3 ML NEBULIZER NEB SCH ×3 (06:48→19:40)
--- NOTE | 2019-08-26 07:21 | General Surgery Progress Note ---
Subjective Patient reports: feels better, pain is less, tolerating liquids well, no flatus, afebrile Narrative: Note initiated : 08/26/19 at 7:20 am Service Date, if different from initiated Date: [] Patient: Lucila Lombardi 74 y/o F admitted on 08/25/19 for Left Nephrectomy Possible Partial Nephrectomy. Chief Complaint: [] POD #1 patient doing well, tolerating fluids, will advance diet. D/C chaparro, ambulate. transfer to floor. Objective Temp Pulse Resp BP Pulse Ox 99.3 F H 64 20 112/56 96 08/26/19 06:49 08/26/19 04:00 08/26/19 06:49 08/26/19 06:49 08/26/19 06:50 - Additional Data Intake & Output - Last 24 hours: Intake & Output 08/24/19 08/25/19 08/26/19 08/27/19 05:59 05:59 05:59 05:59 Intake Total 4285 Output Total 2000 Balance 2285 Weight 201 lb 8 oz 220 lb - Labs 08/26/19 02:56 08/26/19 02:56 Diabetes panel 08/26/19 Range/Units 02:56 Sodium 134 (133-145) mmol/L Potassium 5.1 (3.3-5.1) mmol/L Chloride 101 (96-108) mmol/L Carbon Dioxide 22 (22-30) mmol/L BUN 17 (8-23) mg/dl Creatinine 1.2 H (0.6-1.1) mg/dl Glucose 121 H (70-105) mg/dL Calcium 8.8 (8.6-10.4) mg/dl Calcium panel 08/26/19 Range/Units 02:56 Calcium 8.8 (8.6-10.4) mg/dl Pituitary panel 08/26/19 Range/Units 02:56 Sodium 134 (133-145) mmol/L Potassium 5.1 (3.3-5.1) mmol/L Chloride 101 (96-108) mmol/L Carbon Dioxide 22 (22-30) mmol/L BUN 17 (8-23) mg/dl Creatinine 1.2 H (0.6-1.1) mg/dl Glucose 121 H (70-105) mg/dL Calcium 8.8 (8.6-10.4) mg/dl Adrenal panel 08/26/19 Range/Units 02:56 Sodium 134 (133-145) mmol/L Potassium 5.1 (3.3-5.1) mmol/L Chloride 101 (96-108) mmol/L Carbon Dioxide 22 (22-30) mmol/L BUN 17 (8-23) mg/dl Creatinine 1.2 H (0.6-1.1) mg/dl Glucose 121 H (70-105) mg/dL Calcium 8.8 (8.6-10.4) mg/dl Assessment and Plan - Time Spent With Patient Total time spent is greater than 50% in coordination of care (as documented) at patient's floor/unit and/or counseling patient:
[2019-08-26] MEDS ORDERED: LEVOTHYROXINE 100 MCG TABLET PO SCH (07:30)
[2019-08-26] MEDS: BUMETANIDE 1 MG TABLET PO SCH (10:10)
[2019-08-26] MEDS: SPIRONOLACTONE 25 MG TABLET PO SCH (10:11)
[2019-08-26] MEDS: MULTIVIT,THER IRON,CA,FA & MIN 1 TABLET PO SCH (10:11)
[2019-08-26] MEDS: POTASSIUM CHLORIDE 20 MEQ TABLET PO SCH ×2 (10:11→18:40)
[2019-08-26] MEDS: CELECOXIB 200 MG CAPSULE PO SCH (10:11)
[2019-08-26] MEDS: ESTRADIOL 1 MG TABLET PO SCH (10:11)
[2019-08-26] MEDS: MONTELUKAST 10 MG TABLET PO SCH (10:11)
[2019-08-26] MEDS: IRON POLYSACCHARIDE COMPLEX 150 MG CAPSULE PO SCH (10:11)
[2019-08-26] MEDS: CARVEDILOL 6.25 MG TABLET PO SCH ×2 (10:11→18:40)
[2019-08-26] MEDS: VITAMIN D3 1,000 UNIT TABLET PO SCH (10:12)
[2019-08-26] MEDS: Ubidecarenone [Coq-10] 100 mg Tab PO SCH (10:12)
[2019-08-26] MEDS: Budesonide/Formoterol Fumarate [Symbicort] 160-4.5 mcg Inhaler INH SCH ×2 (10:12→20:45)
[2019-08-26] MEDS ORDERED: ONDANSETRON 4 MG ODT TABLET SL PRN (10:53)
[2019-08-26] MEDS ORDERED: GUAIFENESIN PO PRN (10:53)
[2019-08-26] MEDS ORDERED: MAGNESIUM HYDROXIDE 30 ML ORAL.SUSP PO PRN (10:53)
[2019-08-26] MEDS ORDERED: PSEUDOEPHEDRNE HCL PO PRN (10:53)
[2019-08-26] MEDS ORDERED: ALBUTEROL SULFATE 1 PUFF INHALER INH PRN (10:53)
[2019-08-26] MEDS ORDERED: BISACODYL 10 MG SUPP.RECT PR PRN (10:53)
[2019-08-26] MEDS ORDERED: MAG HYDROX/AL HYDROX/SIMETH 30 ML ORAL.SUSP PO PRN (10:53)
[2019-08-26] MEDS ORDERED: FAMOTIDINE 20 MG TABLET PO PRN (10:53)
[2019-08-26] MEDS ORDERED: ONDANSETRON 4 MG/2 ML VIAL IV PRN (10:53)
[2019-08-26] MEDS: oxyCODONE/APAP 5/325MG TABLET PO PRN ×2 (13:22→18:58)
[2019-08-26] MEDS ORDERED: guaiFENesin 600 MG TAB.SR.12H PO SCH (21:00)
[2019-08-26] MEDS ORDERED: TIOTROPIUM BROMIDE 18 MCG INHALANT INH SCH (21:00)
[2019-08-26] MEDS ORDERED: BUMETANIDE 1 MG TABLET PO SCH (21:00)
[2019-08-27] MEDS: oxyCODONE/APAP 5/325MG TABLET PO PRN ×2 (00:08→07:38)
[2019-08-27] MEDS: 0.9 % SODIUM CHLORIDE 10 ML SYRINGE IV SCH ×2 (04:18→05:05)
[2019-08-27] MEDS ORDERED: LEVOTHYROXINE 100 MCG TABLET PO SCH (07:30)
[2019-08-27] MEDS: POTASSIUM CHLORIDE 20 MEQ TABLET PO SCH (07:39)
[2019-08-27] MEDS: CARVEDILOL 6.25 MG TABLET PO SCH (07:41)
[2019-08-27] MEDS: ALBUTEROL SULFATE 2.5 MG/3 ML NEBULIZER NEB SCH (08:57)
[2019-08-27] MEDS: Budesonide/Formoterol Fumarate [Symbicort] 160-4.5 mcg Inhaler INH SCH (08:59)
[2019-08-27] MEDS ORDERED: CELECOXIB 200 MG CAPSULE PO SCH (09:00)
[2019-08-27] MEDS ORDERED: Ubidecarenone [Coq-10] 100 mg Tab PO SCH (09:00)
[2019-08-27] MEDS ORDERED: ESTRADIOL 1 MG TABLET PO SCH (09:00)
[2019-08-27] MEDS ORDERED: MULTIVIT,THER IRON,CA,FA & MIN 1 TABLET PO SCH (09:00)
[2019-08-27] MEDS ORDERED: VITAMIN D3 1,000 UNIT TABLET PO SCH (09:00)
[2019-08-27] MEDS ORDERED: MONTELUKAST 10 MG TABLET PO SCH (09:00)
[2019-08-27] MEDS ORDERED: BUMETANIDE 1 MG TABLET PO SCH (09:00)
[2019-08-27] MEDS ORDERED: IRON POLYSACCHARIDE COMPLEX 150 MG CAPSULE PO SCH (09:00)
[2019-08-27] MEDS ORDERED: SPIRONOLACTONE 25 MG TABLET PO SCH (09:00)
--- NOTE | 2019-08-27 09:40 | Discharge Plan ---
Discharge Plan - Patient/Caregiver Discharge Instructions Activity: increase activity as tolerated Diet: Regular Diet Additional Instructions: no heavy lifting for 6 weeks. Resume pre-op meds - Follow up Plan Disposition: Home, Self-Care Prognosis: Good Rehab Potential: Good Overall status at discharge: patient is back to baseline
--- NOTE | 2019-08-27 09:42 | General Surgery Progress Note ---
Subjective Patient reports: feels better, bowel movement Narrative: Note initiated : 08/27/19 at 9:40 am Service Date, if different from initiated Date: [] Chief Complaint:POD #2 patient doing well. + BM, pain under control. will d/c to home. Objective Temp Pulse Resp BP Pulse Ox 97.9 F 68 16 117/55 93 08/27/19 04:00 08/27/19 09:03 08/27/19 09:03 08/27/19 04:00 08/27/19 08:58 - Additional Data Intake & Output - Last 24 hours: Intake & Output 08/25/19 08/26/19 08/27/19 08/28/19 05:59 05:59 05:59 05:59 Intake Total 4285 2755 Output Total 2000 3650 Balance 2285 -895 Weight 201 lb 8 oz 220 lb 222 lb - Labs 08/26/19 02:56 08/26/19 02:56 Assessment and Plan - Time Spent With Patient Total time spent is greater than 50% in coordination of care (as documented) at patient's floor/unit and/or counseling patient:
--- NOTE | 2019-08-29 07:38 | Discharge Summary ---
DATE OF ADMISSION: 08/25/2019 DATE OF DISCHARGE: 08/27/2019 PREOPERATIVE DIAGNOSIS: Left renal cell carcinoma. POSTOPERATIVE DIAGNOSIS: Left renal cell carcinoma. PROCEDURE: Left radical nephrectomy. SURGEON: Ronnie Ruiz MD HISTORY OF PRESENT ILLNESS: The patient is a 74-year-old female who was found to have an incidental mass on the left kidney. By CT scan, this corresponded to a renal cell carcinoma and she presents now for excision. For the rest of history and physical, please see that dictation. HOSPITAL COURSE: The patient was taken to the operating room where a left radical nephrectomy was performed. She tolerated this well. There was minimal blood loss. Postoperatively, her hematocrit was 36. She was advanced through her diet, was ambulating is having bowel movements. Her pain is controlled with medications. She is now ready for discharge. Discharge medications include her preop medications plus Percocet for pain. We will plan to follow up with her next week to remove her miguel angel and let her know when the pathology is available. RZ:alexia Job ID: [id number] Doc ID: [id number] Ronnie Ruiz MD
--- NOTE | 2019-08-31 11:41 | Surgical Pathology Report ---
HISTOLOGY SPECIMEN MICROSCOPIC DIAGNOSIS KIDNEY, LEFT, NEPHRECTOMY: -- RENAL CELL CARCINOMA WITH RHABDOID FEATURES. (SEE COMMENT) - SIZE: 3.4 x 2.8 x 2.5 cm. - NHI NUCLEAR GRADE: 4 OF 4. - EXTENT OF TUMOR: TUMOR PENETRATES RENAL CAPSULE TO INFILTRATE PERIRENAL ADIPOSE TISSUE. - RENAL VEIN INVASION: PRESENT. - LYMPH-VASCULAR INVASION: NOT IDENTIFIED. - TUMOR NECROSIS: PRESENT, APPROXIMATELY 30%. - SURGICAL MARGINS: FREE OF MALIGNANCY. - PATHOLOGIC STAGE: pT3a NX MX. (ACP:sln) COMMENT: The kidney tumor has a nodular growth pattern with necrosis and a central region of degenerative change/scar. At the tumor periphery, the tumor focally penetrates the renal capsule to infiltrate perirenal adipose tissue. Cytologically, the tumor has a nested pattern with pleomorphic nuclei and nucleoli (Nhi grade 4). Tumor is focally noted within the renal vein. No small vessel lymphovascular invasion or renal artery invasion is seen. Invasion into the renal hilum is not seen. SUMMARY CANCER DATA Procedure: Radical nephrectomy Specimen Laterality: Left Tumor Size: 3.4 x 2.5 x 2.5 cm Tumor Focality: Unifocal Histologic Type: Renal cell carcinoma with rhabdoid features Histologic (Nhi) Grade: G4 (WHO/ISUP) Sarcomatoid Features: rhabdoid features present Tumor necrosis: Present, approximately 30% Macroscopic Extent of Tumor: Suspicious for renal capsule penetration Microscopic Tumor Extension: Tumor invades into perirenal adipose tissue and renal vein Lymph-Vascular Invasion (excluding renal vein): Not identified Margins: Free of malignancy Lymph Nodes: None identified Pathologic Stage: pT3a NX MX Pathologic findings nonneoplastic kidney: None identified CLINICAL HISTORY Left renal mass. GROSS DESCRIPTION The specimen is received as left kidney and consists of a nephrectomy specimen with attached adipose tissue. At one edge there is disruption of Gerota's fascia. The entire specimen measures 14.0 x 8.0 x 6.5 cm and weighs 323 grams. The kidney alone measures 11.0 x 5.5 x 5.5 cm. The attached ureter measures 3.0 cm in length with a distal diameter of 0.5 cm. The proximal region involving the calices measures up to 1.0 cm. Renal vessels are sutured/stapled and measure 1.0 cm in length with a diameter of 0.5 cm. The attached fat measures up to 3.5 cm in maximum thickness. The intact region of Gerota's fascia is inked black. The specimen is bivalved revealing a firm yellow mass with areas of hemorrhage that abuts upon the renal capsule and measures up to 2.5 cm. The kidney is fixed overnight prior to additional sectioning. With additional sectioning after fixation, the entire tumor dimensions are 2.8 x 2.5 x 3.4 cm. A vague nodular area is noted in the region of the renal capsule, and the appearance is suspicious for extension into perirenal adipose tissue. No gross involvement of the renal carli or proximal vessels are seen. No nodes or adrenal tissue are identified within the attached fat. Sections submitted according to the following slide guillory: A1 - ureteral and renal vessel margins; A2 - complete cross section of mass; A3-A5 - cross section of mass grossly suspicious for involvement of perirenal adipose tissue (A4 has inked Gerota's fascia); A6-A7 - sections of mass and proximal renal parenchyma/carli; A8 - proximal renal carli and proximal vessels; A9 - additional cross section of proximal renal parenchyma (without gross tumor). (ACP:sln) Electronically Signed by: Carlo Lim M.D.
== END 2019-08-27 13:05 | disposition home or self-care (01) | DRG 658 ==
LOC: ICU 04:33 → MEDSUR 08-26 17:00